=== PATIENT | male | born 1980 | race Caucasian/White ===

== ENCOUNTER 2016-11-09 17:16 | Inpatient (IN) | payer OTHER ==
[~2016-11-09] VITALS: Ht 175.3 cm; Wt 69.9 kg
[2016-11-09] MEDS ORDERED: IV NORMAL SALINE 1000ML BAG 1,000 ML IV SCH (17:38)
[2016-11-09 17:50] LABS: BASO # 0.1 x10^3/uL (0.0-0.2); BASO % 1 % (0-3); EOS % 0 % (0-3); LYMPH # 1.7 x10^3/uL (1.0-4.8); LYMPH % 7 % (24-48); MEAN CORPUSCULAR HEMOGLOBIN 28 pg (25-35); MEAN CORPUSCULAR HGB CONC 33 g/dL (31-37); MEAN CORPUSCULAR VOLUME 87 fL (79-100); MONO % 5 % (0-9); NEUT % 87 % (31-73); PLATELET COUNT 293 x10^3/uL (140-400); RED BLOOD COUNT 4.94 x10^6/uL (4.30-5.70); RED CELL DISTRIBUTION WIDTH 13.9 % (11.5-14.5); WHITE BLOOD COUNT 24.1 x10^3/uL (4.0-11.0)
[2016-11-09] MEDS ORDERED: HYDROmorphone 2 MG/ML VIAL ONE (17:56)
[2016-11-09] MEDS ORDERED: MIDAZOLAM HCL/PF 2 MG/2 ML VIAL. ONE (17:57)
[2016-11-09 17:59] LABS: INR 1.2 (0.8-1.1); PROTHROMBIN TIME PATIENT 14.3 SEC (11.7-14.0)
[2016-11-09 18:07] LABS: CALCIUM 9.6 mg/dL (8.5-10.1); CREATININE 1.2 mg/dL (0.7-1.3); GFR 69.3; POTASSIUM 5.1 mmol/L (3.5-5.1)
[2016-11-09] MEDS ORDERED: CONTRAST GIVEN MC PRN (18:15)
[2016-11-09] MEDS ORDERED: IOHEXOL 300 MG/ML 75 ML VIAL IV ONE (18:15)
[2016-11-09 18:23] LABS: PLT ESTIMATE ADEQUATE (ADEQUATE)
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
[2016-11-09 19:27] LABS: BARBITURATES NEG (NEG); BENZODIAZEPINES NEG (NEG); CANNABINOIDS NEG (NEG); COCAINE NEG (NEG); METHADONE NEG (NEG); OPIATES NEG (NEG); PHENCYCLIDINE NEG (NEG)
[2016-11-09] MEDS ORDERED: IV NORMAL SALINE 1000ML BAG 1,000 ML IV ONE (19:30)
[2016-11-09] MEDS ORDERED: HYDROmorphone 2 MG/ML VIAL IV ONE (19:30)
[2016-11-09 19:31] LABS: BACTERIA,URINE 0 /HPF (0-FEW); BILIRUBIN,URINE NEGATIVE (NEG); GLUCOSE,URINE NEGATIVE (NEG); NITRITE,URINE NEGATIVE (NEG); PH,URINE 6.5; PROTEIN,URINE NEGATIVE (NEG-TRACE); RBC,URINE OCC /HPF (0-2); UROBILINOGEN,URINE 0.2 mg/dL (0.2 mg/dL); WBC,URINE OCC /HPF (0-4)
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
[2016-11-09 21:15] VITALS: BP 131/61
[2016-11-09] MEDS ORDERED: DIPHTH,PERTUSS(ACELL),TET TOX 0.5 ML DISP.SYRIN. VAX IM ONE (21:30)
[2016-11-09] MEDS: MORPHINE SULFATE 4 MG/ML DISP.SYRIN. IV PRN (21:55)
[2016-11-09 22:00] VITALS: BP 132/68
[2016-11-09 23:00] VITALS: BP 119/60
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
[2016-11-10] VITALS (17 sets, daily range): BP systolic 105–133; BP diastolic 56–75
[2016-11-10] MEDS ORDERED: ACETAMINOPHEN 325 MG TABLET. PO PRN
[2016-11-10] MEDS ORDERED: ONDANSETRON PF 4 MG/2 ML VIAL. IV PRN
[2016-11-10] MEDS ORDERED: hydrALAZINE 20 MG/ML VIAL. IVP PRN
[2016-11-10] MEDS: MORPHINE SULFATE 4 MG/ML DISP.SYRIN. IV PRN ×5 (00:06→11:30)
[2016-11-10] MEDS: HYDROcodone/APAP 5/325MG 1 TAB TABLET PO PRN ×4 (01:15→20:26)
[2016-11-10 05:34] LABS: BASO # 0.1 x10^3/uL (0.0-0.2); BASO % 1 % (0-3); EOS % 1 % (0-3); HEMATOCRIT 39.1 % (39.0-53.0); HEMOGLOBIN 13.4 g/dL (13.0-17.5); LYMPH # 2.6 x10^3/uL (1.0-4.8); LYMPH % 25 % (24-48); MEAN CORPUSCULAR HEMOGLOBIN 29 pg (25-35); MEAN CORPUSCULAR HGB CONC 34 g/dL (31-37); MEAN CORPUSCULAR VOLUME 85 fL (79-100); MONO % 10 % (0-9); NEUT % 64 % (31-73); PLATELET COUNT 227 x10^3/uL (140-400); RED BLOOD COUNT 4.59 x10^6/uL (4.30-5.70); RED CELL DISTRIBUTION WIDTH 13.8 % (11.5-14.5); WHITE BLOOD COUNT 10.4 x10^3/uL (4.0-11.0)
[2016-11-10 05:47] LABS: CREATININE 0.9 mg/dL (0.7-1.3); GFR 96.6; POTASSIUM 4.3 mmol/L (3.5-5.1)
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
[2016-11-10] MEDS: KETOROLAC 15 MG/ML VIAL. IV PRN (16:28)
[2016-11-10] MEDS ORDERED: ALBUTEROL SULFATE 2.5 MG/3 ML NEBU. NEB PRN ×2 (16:30)
[2016-11-10] MEDS ORDERED: ZOLPIDEM 5 MG TABLET. PO PRN (22:30)
[2016-11-11] MEDS: KETOROLAC 15 MG/ML VIAL. IV PRN ×2 (00:48→08:24)
[2016-11-11 02:59] VITALS: BP 132/72
[2016-11-11] MEDS: HYDROcodone/APAP 5/325MG 1 TAB TABLET PO PRN ×3 (05:32→16:47)
[2016-11-11 06:57] LABS: BASO % 1 % (0-3); EOS % 1 % (0-3); HEMATOCRIT 42.3 % (39.0-53.0); LYMPH # 1.5 x10^3/uL (1.0-4.8); LYMPH % 19 % (24-48); MEAN CORPUSCULAR HEMOGLOBIN 29 pg (25-35); MEAN CORPUSCULAR HGB CONC 33 g/dL (31-37); MEAN CORPUSCULAR VOLUME 87 fL (79-100); MONO % 11 % (0-9); NEUT % 68 % (31-73); PLATELET COUNT 203 x10^3/uL (140-400); RED BLOOD COUNT 4.88 x10^6/uL (4.30-5.70); RED CELL DISTRIBUTION WIDTH 13.9 % (11.5-14.5); WHITE BLOOD COUNT 7.9 x10^3/uL (4.0-11.0)
[2016-11-11 07:05] LABS: CALCIUM 8.8 mg/dL (8.5-10.1); CREATININE 0.9 mg/dL (0.7-1.3); GFR 96.6; POTASSIUM 3.8 mmol/L (3.5-5.1)
[2016-11-11 07:52] VITALS: BP 140/78
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
[2016-11-11 10:42] VITALS: BP 119/60
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
[2016-11-11 14:50] VITALS: BP 132/76
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
== END 2016-11-11 18:06 | DRG 205 ==
LOC: EEVIPCON 17:16 → ER 17:16 → 1 WEST ICU 19:56 → 6 SOUTH 11-10 13:52
PROVIDERS: ADMIT Internal Medicine; ATTEND Internal Medicine
DX: S22.39XA Fracture of one rib, unspecified side, initial encounter for closed fracture (principal); S27.2XXA Traumatic hemopneumothorax, initial encounter; S27.321A Contusion of lung, unilateral, initial encounter; S21.112A Laceration without foreign body of left front wall of thorax without penetration into thoracic cavity, initial encounter; S27.898A Other injury of other specified intrathoracic organs, initial encounter; D72.829 Elevated white blood cell count, unspecified; W18.39XA Other fall on same level, initial encounter; S20.219A Contusion of unspecified front wall of thorax, initial encounter; Z88.0 Allergy status to penicillin; Y93.89 Activity, other specified; Y92.89 Other specified places as the place of occurrence of the external cause; Y99.8 Other external cause status
CPT/HCPCS: 36415; 71010; 71020; 71260; 74177; 80048; 81001; 85007; 85027; 85610; 85730; 86850; 86900; 86901; 87641; 94640; 96361; 96374; 99292; G0238; G0480; G0481; J0690; J1170; J1885; J2270; J7030; Q9967; 99291-25